=== PATIENT | female | born 1935 | race Caucasian/White ===

== ENCOUNTER 2019-01-17 09:58 | Day surgery (SDC) | payer MEDICARE, BC ==
[~2019-01-17 09:58] MED LIST: Dexamethasone/Tobramycin 0.1-0.3% Ophth Oint 3.5 GM Tube ONE; Proparacaine 0.5% Ophth Soln 15 ML Bottle ONE
[2019-01-17] MEDS ORDERED: Midazolam 1 MG/ML 2 ML SDV IV ONE (09:59)
[2019-01-17] MEDS ORDERED: Dexamethasone 4 MG/ML SDV IV ONE (09:59)
[2019-01-17] MEDS ORDERED: Sodium Chloride 0.9% 10 ML Syringe IV ONE (09:59)
[2019-01-17] MEDS: Proparacaine 0.5% Ophth Soln 15 ML Bottle EYERT ONE (10:28)
[2019-01-17] MEDS: Moxifloxacin 0.5% Ophth Soln 3 ML Bottle EYERT ONE (10:29)
[2019-01-17] MEDS: Povidone-Iodine 5% Sterile Ophth Soln 30 ML Bottle EYERT ONE ×2 (10:29→11:06)
[2019-01-17] MEDS: Phenylephrine 10% Ophth Soln 5 ML Bot EYERT ONE (10:31)
[2019-01-17] MEDS: Timolol Maleate 0.5% Ophth Soln 5 ML Bottle EYERT ONE (10:31)
[2019-01-17] MEDS: Cataract Ophth Solution EYERT ONE (10:32)
[2019-01-17] MEDS: Sodium Chloride 0.9% 10 ML Syringe FLUSH PRN (10:37)
[2019-01-17] MEDS ORDERED: Acetaminophen 325 MG Tab PO PRN (11:00)
[2019-01-17] MEDS ORDERED: Acetaminophen/Codeine 300-30 MG Tab PO PRN (11:00)
[2019-01-17] MEDS ORDERED: Phenylephrine 10% Ophth Soln 5 ML Bot EYERT PRN (11:00)
[2019-01-17] MEDS ORDERED: Ondansetron 4 MG/2 ML SDV IVPUSH PRN (11:00)
[2019-01-17] MEDS: Tetracaine HCl/PF 0.5% 4 ML Bottle EYERT ONE (11:06)
[2019-01-17] MEDS: Lidocaine 1% 30 ML SDV ONE (11:06)
[2019-01-17] MEDS: Dexamethasone/Tobramycin 0.1-0.3% Ophth Oint 3.5 GM Tube EYERT ONE (11:07)
[2019-01-17] MEDS: Vancomycin 500 MG SDV EYERT ONE (11:07)
[2019-01-17] MEDS: Diclofenac Sodium 0.1% Ophth Soln 5 ML Bottle EYERT ONE (11:07)
[2019-01-17] MEDS: Apraclonidine 0.5% Ophth Soln 5 ML Bot EYERT ONE (11:07)
[2019-01-17] MEDS: Chondroitin Sulfate/Hyaluronate Sodium Ophth Inj 0.75 ML Syringe EYERT ONE (11:08)
[2019-01-17] MEDS: Balanced Salt Solution Ophth Irrig 500 ML Bottle IOCULAR ONE (11:08)
[2019-01-17] MEDS: Carbachol 0.01% Intraocular 1.5 ML Vial EYERT ONE (11:08)
[2019-01-17] MEDS: Chondroitin Sulfate/Hyaluronate Sodium Ophth Inj 0.5 ML Syringe IOCULAR ONE (11:08)
--- NOTE | 2019-01-17 11:34 | OR ---
DATE: 01/17/2019 PREOPERATIVE DIAGNOSES: 1. Visually significant mixed cataract, right eye. 2. Primary open angle glaucoma, right eye. POSTOPERATIVE DIAGNOSES: 1. Visually significant mixed cataract, right eye. 2. Primary open angle glaucoma, right eye. PROCEDURES: 1. Extracapsular cataract extraction with intraocular lens implant. 2. Placement of iStent for glaucoma control. SURGEON: Alexander Peoples MD ANESTHESIA: Local MAC. INDICATION: Ms. Alford was seen in the clinic with complaints of blurred vision, difficulty reading, and difficulty seeing numbers. Best spectacle corrected vision to the level of 20/60. Examination reveals visually significant mixed cataract and moderate primary open-angle glaucoma. I explained options, offered cataract surgery, and explained risks including, but not limited to, infection, retinal detachment, loss of vision, and need for additional surgery amongst others. We discussed implant options. She has requested surgery with a monofocal implant. I did recommend the iStent. OPERATIVE DESCRIPTION: The patient was prepped and draped in a sterile fashion and topical anesthesia was applied. Attention was placed on the operative eye. A sterile lid speculum was placed to allow operative exposure. Paracentesis was made temporal. Intracameral lidocaine was administered. Viscoelastic was injected. A full-thickness corneal incision was made using the trapezoidal blade. Bent needle cystotome was then used to make a small mili in the anterior capsule, and a 360-degree curvilinear capsulorrhexis was created. Nucleus was then hydrodissected and hydrodelinated using balanced saline solution. Nucleus was then decompressed centrally and rotated and noted to be free of adhesions. Nucleus was then removed using the phacoemulsification handpiece. Additional viscoelastic was then injected into the capsular bag, and the intraocular lens was inserted into the capsular bag. The iStent portion of the procedure was then performed. Following removal of the nucleus and cortex, the irrigation and aspiration handpiece was inserted to remove viscoelastic from the posterior surface of the IOL. Additional viscoelastic was then inserted into the anterior chamber angle directly opposite the corneal incision. Miochol was injected into the nasal iris to promote pupillary contraction. The patient's head was then rotated 35 degrees away from the initial position. The operating microscope was also rotated 35 degrees to achieve the proper orientation. The gonioprism was then placed onto the eye. The iStent was then inserted into the anterior chamber with the right hand, and the stent was introduced into the pigmented trabecular meshwork. The stent was advanced beneath the trabecular meshwork until approximately two-thirds of the body was covered, and then the stent was released from the insertion device. The stent was then tapped into its final resting position using the insertion device. The device was then reinspected to ensure that it was securely in position. The viscoelastic was aspirated from the anterior chamber. Wound and paracentesis sites were hydrated using balanced saline solution. Vancomycin 0.1 mL was injected into the anterior chamber. Intraocular lens was inspected and noted to be clear and well centered. Postoperative drops were placed, and a sterile eye patch and shield were placed over the operative eye. The patient was then transported to the postoperative recovery area having tolerated the procedure well. No complications occurred. [facility] /[id number]
[2019-01-17 11:58] VITALS: BP 119/55
== END 2019-01-17 11:57 | disposition home or self-care (01) ==
LOC: DL.SDS 09:58
PROVIDERS: ATTEND Ophthalmology
DX: H25.811 Combined forms of age-related cataract, right eye (principal); H40.1112 Primary open-angle glaucoma, right eye, moderate stage; E78.5 Hyperlipidemia, unspecified; E03.9 Hypothyroidism, unspecified; K21.9 Gastro-esophageal reflux disease without esophagitis; Z98.42 Cataract extraction status, left eye; Z79.899 Other long term (current) drug therapy; Z79.890 Hormone replacement therapy; Z88.2 Allergy status to sulfonamides; Z88.8 Allergy status to other drugs, medicaments and biological substances; Z88.1 Allergy status to other antibiotic agents
CPT/HCPCS: 00142; A9270-GY; C1780; C1783; J1100; J2001; J2250; J3370

== ENCOUNTER 2021-11-29 20:03 | Emergency (ER) | payer MEDICARE, BC ==
[2021-11-29 20:23] VITALS: BP 123/67; PULSE 84
[2021-11-29 21:42] LABS: ANION GAP 12.9 mEq/L (7-13); CHLORIDE,CL 105 mmol/L (98-107); SODIUM,NA 142 mmol/L (136-145)
[2021-11-29] MEDS ORDERED: Acetaminophen 500 MG Tab PO ONE (22:03)
[2021-11-29] MEDS ORDERED: Azithromycin 250 MG Tab PO ONE (22:14)
[2021-11-29] MEDS ORDERED: Amoxicillin/Clavulanate K 875-125 MG Tab PO ONE (22:14)
[2021-11-29] MEDS ORDERED: Azithromycin 250 MG Tab ONE (23:11)
[2021-11-29] MEDS ORDERED: Amoxicillin/Clavulanate K 875-125 MG Tab ONE (23:11)
== END 2021-11-29 23:29 | disposition home or self-care (01) ==
LOC: DL.ED 20:03
DX: J18.9 Pneumonia, unspecified organism (principal); E78.00 Pure hypercholesterolemia, unspecified; K21.9 Gastro-esophageal reflux disease without esophagitis; E03.9 Hypothyroidism, unspecified; Z88.8 Allergy status to other drugs, medicaments and biological substances; Z88.7 Allergy status to serum and vaccine; Z88.1 Allergy status to other antibiotic agents; Z88.2 Allergy status to sulfonamides; Z79.899 Other long term (current) drug therapy
CPT/HCPCS: 36415; 71045; 80053; 82150; 83605; 83690; 84484; 85025; 86140; 93005; 93010; 99284; 99285; A9270